=== PATIENT | female | born 1945 | race Caucasian/White ===

== ENCOUNTER 2017-01-02 17:25 | Inpatient (IN) | payer OTHER ==
[~2017-01-02] VITALS: Ht 167.6 cm; Wt 73.7 kg
[~2017-01-02 17:25] MED LIST: LEVOTHYROXIN0.025 MG; LEVOTHYROXINE0.05 MG; SIMVASTATIN20 MG PO; TIROSINT88 MCG PO; ZOC10
--- NOTE | 2017-01-02 17:53 | NUR ---
DR. MATHEW AT BEDSIDE FOR MSE
--- NOTE | 2017-01-02 17:53 | NUR ---
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
--- NOTE | 2017-01-02 18:09 | NUR ---
IVF CURRENTLY INFUSING AT THIS TIME PER MD ORDER, PLEASE SEE EMAR, PT TOLERATED WELL, PT RESTING IN BED IN A POSITION OF COMFORT, CALL LIGHT WITHIN REACH, EKG IN PROGRESS AT THIS TIME BY BRITTNEY CANO
[2017-01-02 18:33] LABS: RED CELL DISTRIBUTION WIDTH 13.6 % (11.5-14.5)
[2017-01-02 18:34] LABS: PLATELET COUNT 129 x10^3mcL (130-400)
[2017-01-02 18:51] LABS: BAND NEUTROPHIL 9 % (0-10); BASOPHIL 0 % (0-2); MONOCYTE 4 % (0-7); SEGMENTED NEUTROPHILS 86 % (37-75)
[2017-01-02 19:14] LABS: ALKALINE PHOSPHATASE 58 U/L (46-116); ALT/SGPT 23 U/L (14-59); AST/SGOT 58 U/L (15-37); CALCIUM 6.8 mg/dL (8.5-10.1); CARBON DIOXIDE 16.5 mmol/L (21-32); CHLORIDE SERUM 109 mmol/L (98-107); GLUCOSE SERUM 100 mg/dL (74-106); SODIUM SERUM 140 mmol/L (136-145)
--- NOTE | 2017-01-02 19:15 | NUR ---
REPORT RECEIVED FROM ORAL Knowles RN
[2017-01-02 19:19] LABS: ALBUMIN 1.9 g/dL (3.4-5.0); TOTAL PROTEIN, SERUM 4.6 g/dL (6.4-8.2)
[2017-01-02 19:20] LABS: POTASSIUM SERUM 2.3 mmol/L (3.5-5.1)
[2017-01-02 19:24] LABS: CK-MB 3.1 ng/mL (0-3.6)
[2017-01-02] MEDS ORDERED: ATORVASTATIN CA40 M1 PO (19:46)
[2017-01-02] MEDS ORDERED: LEVOTHYROXINE0.05 M2 PO (19:46)
[2017-01-02 20:24] LABS: UA SPECIFIC GRAVITY 1.025 (1.005-1.035); microscopic required? YES; urine erythrocyte 3+ (NEGATIVE)
[2017-01-02 20:56] VITALS: BP 90/57
[2017-01-02 20:56] LABS: CHOLESTEROL/HDL RATIO 3.6
[2017-01-02 21:00] LABS: T3 TOTAL 0.49 ng/mL
[2017-01-02 21:10] LABS: FREE T4 1.68 ng/dL (0.76-1.46); FREE THYROXINE INDEX 3.2 ug/dL (1.4-4.5); T4(THYROXINE) 8.1 ug/dL (4.7-13.3)
--- NOTE | 2017-01-02 21:18 | NUR ---
RECEIVED PATIENT FO ED VIA US [employer], PATIENT IN NO ACUTE DISTRESS, NO C/O PAIN AT THIS TIME, ALERT AND ORIENTED, ORIENTED PATIENT TO ROOM AND SURROUNDINGS, BED IN LOW POSITION, BED RAILS UP X 2, CALL LIGHT WITHIN REACH, WILL ENDORSE CARE TO PRIMARY NURSE KANDACE AVERY
--- NOTE | 2017-01-02 21:30 | NUR ---
RECEIVED PT. PT RESTING IN SEMI AMBRIZ'S POSITION. AWAKE AND ALERT. NO C/O PAIN AT THIS TIME. NO DISTRESS NOTED. IV ON RAC, INTACT. INSTRUCTED PT TO CALL IF ASSISTANCE IS NEEDED. CALL LIGHT WITHIN REACH.
[2017-01-03 03:48] LABS: PLATELET COUNT 140 x10^3mcL (130-400); RED CELL DISTRIBUTION WIDTH 13.4 % (11.5-14.5)
[2017-01-03 04:10] LABS: POTASSIUM SERUM 3.5 mmol/L (3.5-5.1); SODIUM SERUM 138 mmol/L (136-145)
[2017-01-03 04:11] LABS: CALCIUM 8.6 mg/dL (8.5-10.1); CARBON DIOXIDE 24.1 mmol/L (21-32); CHLORIDE SERUM 105 mmol/L (98-107); CREATININE SERUM 1.2 mg/dL (0.6-1.0); GLUCOSE SERUM 114 mg/dL (74-106); MAGNESIUM 2.1 mg/dL (1.8-2.4)
[2017-01-03 04:26] LABS: BAND NEUTROPHIL 5 % (0-10); METAMYELOCTE 2 % (0-2); MONOCYTE 6 % (0-7); SEGMENTED NEUTROPHILS 78 % (37-75)
[2017-01-03 04:28] LABS: PLATELET MORPHOLOGY LARGE PLATELET SEEN; rbc morphology (normal/abnorm) NORMAL (NORMAL)
[2017-01-03 05:57] VITALS: BP 96/47
--- NOTE | 2017-01-03 07:00 | NUR ---
PT SLEPT ON AND OFF DURING SHIFT. NO C/O PAIN. NO DISTRESS NOTED. SAFETY MEASURES MAINTAINED. BED IN LOWEST POSITION. SIDE RAILS UP X2. INSTRUCTED PT TO CALL IF ASSISTANCE IS NEEDED. CALL LIGHT WITHIN REACH. WILL ENDORSE CONTINUITY OF CARE TO ONCOMING RN.
--- NOTE | 2017-01-03 08:00 | NUR ---
ALERT AND ORIENTED. A LITTLE FORGETFUL AND CONFUSED. DENIES ANY PAIN. BREATHING FREELY ON RA. GENERALZIED WEAKNESS. INSTRUCTED TO USE CALL LIGHT FOR ANY NEEDS OR NEEDED ASSIST. NOT TO GET OUT OF BED WITHOUT CALLING FOR HELP.NS INFUSING 80 CC HOUR. TELE # [id number] NSR. CALL LIGHT WITHIN REACH.
[2017-01-03 10:12] VITALS: BP 93/50
--- NOTE | 2017-01-03 11:01 | NUR ---
INFORMED DR. GAYLE OF BP 93/50 HR 79. AYMTOMATIC. WILL CONTINUE TO MONITOR.
[2017-01-03 12:53] VITALS: BP 99/55
--- NOTE | 2017-01-03 13:41 | NUR ---
Nutrition Note 221T-B KANDACE MERCADO 71 Y/O F Nutrition Consult: Severe Malnutrition, ALB 1.9. Thank you for your consult. Dx: Hypokalemia, Gastroenteritis PMHx: Hypothyroidism, HLD, breast CA, arthritis, osteoporosis PSx: Appendectomy, L breast lumpectomy (2.5 years ago), complete hysterectomy for fibroids, menorrhagia, dymenorrhea Ht: 66", 6' 6". Wt: 162 lb, 74 kg. BMI: 26.2 kg/m2 (Overweight) Labs: BG 114 H, BUN 28 H, Cr 1.2 H, WBC 12.4 H, H/H 10.2/31 L; (01/02) ALB 1.9 L, AST 58 H, CK 2398 H, A1C 5.3 Current Diet Order: Regular, Boost TID PO Intakes: No PO intakes recorded yet Skin: Intact. Gustavo 20. No pressure injuries noted. Pt found with suspect disorder of ANS with generalized weakness secondary to UTI per doctor's notes. Pt was seen resting in bed, sipping on Boost oral supplement, appears overly-nourished, no signs and symptoms of malnutrition noted. Pt reported good PO intakes, too much food on tray, stated that her appetite has improved since admission, no recent weight changes, doing well at this time. Pt stated that she was not eating much prior to admission due to being sick, vomiting at times, and having chills. However, pt stated her PO intakes have improved since admission. Pt knows to make food preferences known, understands that she is on a regular diet with no dietary restrictions at this time. RD encourage adequate PO intakes with Boost as supplement. Pt verbalizes understanding. Review indicates pt is a LOW risk priority at this time. RD to follow up per nutrition care policy and standards. Please contact RD should nutrition concerns arise earlier than expected follow up date. Pt will be F/U as LOW risk (01/10).
[2017-01-03 17:10] VITALS: BP 104/58
--- NOTE | 2017-01-03 19:20 | NUR ---
PATIENT RECEIVED AWAKE, ALERT, AND ORIENTED X 3. NO DISTRESS NOTED. NO C/O PAIN/DISCOMFORT AT THIS TIME. IV SITE TO RIGHT FOREARM, PATENT AND INTACT. IV FLUID INFUSING PER DOCTOR'S ORDER. BED IN LOWEST POSITION. CALL LIGHT WITHIN REACH. WILL CONTINUE TO MONITOR.
--- NOTE | 2017-01-03 19:42 | NUR ---
RESTING COMFORTABLY. NS INFUSING 80 CC HOUR. ASSIST W BRP. NO PAIN THIS SHIFT. BREATHING FREELY ON RA. CALL LIGHT WITHIN REACH. WEARING SCD'S. TELE # 22 NSR. VSS.
[2017-01-03 21:21] VITALS: BP 108/57
--- NOTE | 2017-01-03 23:30 | NUR ---
PATIENT CALLED STATING SHE IS HAVING VISUAL HALLUCINATIONS. DR DALE AT BEDSIDE SPEAKING WITH PATIENT. PATIENT STATES POSSIBLY HAVING HALLUCINATIONS DUE TO LACK OF SLEEP. WILL GIVE SLEEP AID PER DOCTOR'S ORDER. WILL CONTINUE TO MONITOR.
--- NOTE | 2017-01-04 05:09 | NUR ---
PATIENT RESTED IN INTERVALS THROUGHOUT THE NIGHT. NO DISTRESS NOTED. NO C/O PAIN/DISCOMFORT. SAFETY AND COMFORT MEASURES MAINTAINED. BED IN LOWEST POSITION. CALL LIGHT WITHIN REACH. WILL CONTINUE TO MONITOR AND ENDORSE TO NEXT SHIFT NURSE.
[2017-01-04 05:50] VITALS: BP 117/66
[2017-01-04 06:14] LABS: PLATELET COUNT 146 x10^3mcL (130-400); RED CELL DISTRIBUTION WIDTH 13.8 % (11.5-14.5)
[2017-01-04 06:29] LABS: CALCIUM 9.2 mg/dL (8.5-10.1); CARBON DIOXIDE 21.4 mmol/L (21-32); CHLORIDE SERUM 105 mmol/L (98-107); CREATININE SERUM 0.9 mg/dL (0.6-1.0); GLUCOSE SERUM 96 mg/dL (74-106); MAGNESIUM 1.9 mg/dL (1.8-2.4); PHOSPHOROUS 2.1 mg/dL (2.5-4.9); POTASSIUM SERUM 3.4 mmol/L (3.5-5.1); SODIUM SERUM 137 mmol/L (136-145)
[2017-01-04 06:59] LABS: BASOPHIL % 0 % (0-2)
--- NOTE | 2017-01-04 07:30 | NUR ---
RECEIVED Pt. AAOX4 CONTINUE TO REPORT HAVING VISUAL HALLUCINATIONS. SEEING CHILDREN AND ANIMALS IN ROOM. DENIES PAIN AT THIS TIME. NO DISTRESS NOTED. TELE IN PLACE. IVF RUNNING TO IV AT RIGHT AC PATENT AND INTACT. BED LOW/LOCKED. CALL LIGHT IN REACH.
--- NOTE | 2017-01-04 09:00 | NUR ---
BLOOD CULTURE RESULT REPORTED TO DR. GAYLE.
--- NOTE | 2017-01-04 09:10 | NUR ---
MADE ROUNDS WITH DR. OSBORN AND MEDICINE TEAM. Pt. TO HAVE PT EVAL AND PSYCH CONSULT AND AGREED WITH PLAN OF CARE.
[2017-01-04 10:06] VITALS: BP 98/59
[2017-01-04 13:22] VITALS: BP 130/67
--- NOTE | 2017-01-04 15:23 | NUR ---
P.T. 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 S:Pt WAS SEEN AWAKE & ALERT IN BED, SPEAKS CZECH; ORIENTED x3, ABLE TO FOLLOW COMMANDS, AGREEABLE & COOPERATIVE W/ P.T., TALKATIVE, NO C/O PAIN OR DIZZINESS AT THIS TIME; SPEECH CLEAR. O:BED MOBILITY: INDEP IN SUPINE TO SIT TRANSFERS: INDEP IN SIT TO STAND GAIT: SUP/I WITHOUT ASST DEVICE X 462 FT, IV POLE IN TOW, ANOTHER P.T. STAFF ON SBA FOR SAFETY A:Pt DEMO GOOD RESPONSE TO P.T. SESSION; NO NOTED SIGNIFICANT GAIT DEVIATION AT THIS TIME; NO NOTED LOSS OF BALANCE AT THIS TIME; NO NOTED FACIAL DROOPING OR DROOLING OR ONE-SIDED LEANING AT THIS TIME; Pt EDUC ON SAFE GAIT, [facility] W/ NURSE STAFF AD KRISTEN, USE OF CALL LIGHT FOR NURSE ASSIST, VERBALIZED UNDERSTANDING, GOOD FOLLOW THRU; PL=894/66 (SUPINE), 122/71 (SITTING), 99/72 (POST GAIT, SITTING); HR=94, 100; O2 SAT ROOM AIR=94%, 98% P:D/C FROM P.T. AFTER TX, NURSING TO [facility] PATIENT AD KRISTEN. EVAL25,PVE(SETUP,SAFETY,VITAL SIGNS ASSESSMENT) GCODES:[id number] TUG SCORE:11 sec [id number] Pt DEMO SUP/I IN TOILETTING; Pt EDUC ON HAND PLACEMENT FOR SAFE TRANSFERS; AGREED TO SIT UP IN CHAIR AT BEDSIDE; CALL [place], PHONE, TABLE IN REACH; APPRECIATIVE. TA15 RETURNED TO ROOM, Pt WAS ASSISTED TO BED SAFELY BY NURSE STAFF; CALL [place], PHONE, TABLE IN REACH.
[2017-01-04 17:27] VITALS: BP 100/64
--- NOTE | 2017-01-04 18:50 | NUR ---
Pt. REMAINS AAOX4 RESPIRATIONS EVEN AND UNLABORED. DENIES HEADACHE/DIZZINESS. DENIES PAIN/DISCOMFORT. NO DISTRESS NOTED. TELE IN PLACE. IVF RUNNING TO IV AT RIGHT AC PATENT AND INTACT. Pt. CONTINUE TO REPORT VISUAL HALLUCINATIONS SUCH "SEEING CUTOUTS OF PICTURES FROM OLD STORY BOOKS" IN HER ROOM. BED LOW/LOCKED. CALL LIGHT IN REACH.
--- NOTE | 2017-01-04 19:40 | NUR ---
RECEIVED PT AWAKE ALERT AND VERBALLY RESPONSIVE.REPORTS OF VISUAL DELUSIONS BUT DENIES AT THIS TIME.DENIES CHESTPAIN.BP 103/64 MMHG,HR 60.ASSISTED TO BR AND WELL TOLERATED.WILL CONTINUE TO MONITOR.
[2017-01-04 19:45] VITALS: BP 103/64
[2017-01-04 21:57] VITALS: BP 113/61
--- NOTE | 2017-01-05 04:57 | NUR ---
PT SLEPT WITH INTERVALS.NO DELUSIONS/HALLUCINATIONS NOTED.NO SYNCOPAL EPISODES.ASSISTED TO BR NEEDED.NO ASE NOTED FROM UNASYN IV ATB.ALL NEEDS MET.WILL CONTINUE TO MONITOR.
[2017-01-05 06:13] VITALS: BP 118/70
[2017-01-05 07:01] LABS: BASOPHIL % 0.4 % (0-2); PLATELET COUNT 159 x10^3mcL (130-400); RED CELL DISTRIBUTION WIDTH 13.9 % (11.5-14.5)
[2017-01-05 07:20] LABS: CALCIUM 8.7 mg/dL (8.5-10.1); CARBON DIOXIDE 22.5 mmol/L (21-32); CHLORIDE SERUM 106 mmol/L (98-107); CREATININE SERUM 0.9 mg/dL (0.6-1.0); GLUCOSE SERUM 100 mg/dL (74-106); POTASSIUM SERUM 3.3 mmol/L (3.5-5.1); SODIUM SERUM 139 mmol/L (136-145)
--- NOTE | 2017-01-05 08:00 | NUR ---
RECEIVED PATIENT ALERT AND ORIENTED TIMES FOUR. PATIENT FOR ULTRA SOUND OF THE RENAL AND PATIENT HAS NO ACUTE DISTRESS AT THIS TIME. VITALS ARE STABLE AND PATEINT AHS CLEAR BUT DIMINIHSED BREATH SOUNDS AND BOWEL SOUNDS ACTIVE. IV INTACT AND PATIENT HAS BEEN NS AT 80 AND ON UNASYN IVPB WITHOUT ANY ADVERSE RECTION. PATIENT HAS CARDIOMEGALY AND CT OF THE HEAD ABND IS NEGATIVE. PATIENT AHS BEEN WITH EPISODES OF VISUAL HALLUCINATIONS PER REPORT BUT DENIES ANY VISION AT THIST WHITNEY. 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 PATIENT HAS BEEN WITH ELEVATED WBC AND THE WBC IS AT 11.1 THIS AM AND IMPROVED. APTIENT AHS LOW H AND H OF 10.3/31. PATIENT HAS SINUS RYTHM WTUIH BUNDLE BRANCH BLOCK ON THE MONITOR AND DENIES CHEST PAIN OR DIZZINESS AT THIS TIME. VITALS AT THIS TIME AT 104/64, 18, 89, 98%, 98.2.
[2017-01-05 09:50] VITALS: BP 104/64
--- NOTE | 2017-01-05 10:53 | NUR ---
KETTY HAS THE ULTRASOUND OF THE RENAL AND AWAITING RESULTS AT THIS TIME.
--- NOTE | 2017-01-05 13:11 | NUR ---
NO HALLUCINATIONS TODAY SO FAR BUT PATIENT IS A BIT ODD IN HER REACTIONS TO THE WORLD AROUND HER. SHE IS COOPERATIVE AND NO HALLUCINATIONS REPORTED AT THIS TIME.
[2017-01-05] MEDS ORDERED: AUG500 PO (14:12)
[2017-01-05] MEDS ORDERED: ATORVASTATIN CA40 M1 PO (14:13)
[2017-01-05] MEDS ORDERED: FLO4 PO (14:13)
[2017-01-05 14:52] VITALS: BP 141/78
[2017-01-05 14:59] VITALS: BP 141/78
--- NOTE | 2017-01-05 16:05 | NUR ---
ORDERS FOR DISCHARGE RECIEVED AND PATIENT IS ANXIOUS TO GO HOME. REMOVED THE IV AND GAVE INSTRUCIONS TO THE PATIENT FOR FOLLOW UP AND TO CALL THE DOCTOR OR RETURN TO THE EMERGENCY ROOM IF SYMPTOMS REOCCUR OR PERSIST. PATIENT DENIES PAIN AND STATES NOT CONFUSED AT THIS TIME. DISCHARGE TO HOME WITH ALL BELONGINGS.
== END 2017-01-05 15:45 | disposition home or self-care (01) | DRG 689 ==
LOC: ED 17:25 → DU 19:44
PROVIDERS: Emergency Medicine; ADMIT Family Medicine
DX: N39.0 Urinary tract infection, site not specified (principal); N17.0 Acute kidney failure with tubular necrosis; E43 Unspecified severe protein-calorie malnutrition; M62.82 Rhabdomyolysis; E87.6 Hypokalemia; E86.0 Dehydration; K52.9 Noninfective gastroenteritis and colitis, unspecified; E83.51 Hypocalcemia; E03.9 Hypothyroidism, unspecified; F43.23 Adjustment disorder with mixed anxiety and depressed mood; E78.5 Hyperlipidemia, unspecified; D69.6 Thrombocytopenia, unspecified; D63.8 Anemia in other chronic diseases classified elsewhere; Z85.3 Personal history of malignant neoplasm of breast; M81.0 Age-related osteoporosis without current pathological fracture; Z68.26 Body mass index [BMI] 26.0-26.9, adult
CPT/HCPCS: 83880; 84439; 97530-GP; J0295; J0696; J3480; J7030; J8597; Q0092; Q0177

== ENCOUNTER 2018-07-07 20:37 | Emergency (ER) | payer OTHER ==
[~2018-07-07 20:37] MED LIST changes: +ATORVASTATIN CA40 M1 PO; +AUG500 PO; +FLO4 PO; +LEVOTHYROXINE0.05 M2 PO
[2018-07-08 00:30] VITALS: BP 103/75
== END 2018-07-08 00:30 | disposition home or self-care (01) ==
LOC: ED 20:37
DX: S52.592A Other fractures of lower end of left radius, initial encounter for closed fracture (principal); S52.692A Other fracture of lower end of left ulna, initial encounter for closed fracture; S09.8XXA Other specified injuries of head, initial encounter; W18.39XA Other fall on same level, initial encounter; Y93.89 Activity, other specified; Y92.096 Garden or yard of other non-institutional residence as the place of occurrence of the external cause; Y99.8 Other external cause status
CPT/HCPCS: Q0092